=== PATIENT | female | born 1995 | race Caucasian/White ===

== ENCOUNTER 2019-11-21 08:44 | Day surgery (SDC) | payer OTHER ==
[2019-11-08 11:42] VITALS: BMI 31.1
--- NOTE | 2019-11-17 11:25 | HP ---
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 Patient's most recent US done 05/2019 was c/w multiple masses including an increase in the right fibroadenoma from 3.6 to 6.2 cm. The left 9 oclock mass also showed an increase from 1.9 to 2.1 cm. Patient is now presenting for bilateral breast wide excision. History Source: Patient Limitations to Obtaining History: No Limitations - Past Medical History ...LMP: 10/04/19 Additional Past Medical History: None - Past Surgical History Past Surgical History: Yes: Appendectomy (1998), Breast Biopsy (right 5-6 oclock core bx (09/2018-fibroadenoma)) - Smoking History Smoking history: Never smoked Home Medications - Allergies Allergies/Adverse Reactions: Allergies Allergy/AdvReac Type Severity Reaction Status Date / Time No Known Allergies Allergy Verified 11/08/19 11:31 - Home Medications Home Medications: Ambulatory Orders Multivitamin [One-Daily Multi-Vitamin] 1 each PO DAILY 11/08/19 Norethindrone AC-Eth Estradiol [Loestrin 21 1.5-30 Tablet] 1 each PO DAILY 11/08/19 Family Medical History Other Family History: pat cousin-hepatic/renal cancer Review of Systems - Review of Systems Constitutional: reports: No Symptoms Cardiovascular: reports: No Symptoms Respiratory: reports: No Symptoms Gastrointestinal: reports: Indigestion, Nausea Musculoskeletal: reports: Back Pain, Muscle Pain Physical Examination Constitutional: Yes: Well Nourished, Calm Breast(s): Yes: Other (Bilateral breasts are diffusely nodular and dense. A 6 cm rubbery mass was noted in the right LIQ and a left UIQ 1.5 cm mass was noted on palpation.) Problem List - Problems (1) Fibroadenoma of right breast Code(s): D24.1 - BENIGN NEOPLASM OF RIGHT BREAST (2) Left breast mass Code(s): N63.20 - UNSPECIFIED LUMP IN THE LEFT BREAST, UNSPECIFIED QUADRANT Assessment/Plan Bilateral breast wide excision
[2019-11-21] MEDS ORDERED: fentaNYL CITRATE 250 MCG/5 ML VIAL ONE (11:04)
[2019-11-21] MEDS ORDERED: MIDAZOLAM HCL 2 MG/2 ML SINGLE DOSE VIAL ONE ×2 (11:05→11:45)
[2019-11-21] MEDS ORDERED: ROCURONIUM BROMIDE 50 MG/5 ML VIAL ONE (11:05)
[2019-11-21] MEDS ORDERED: ONDANSETRON 4 MG/2 ML VIAL ONE ×2 (11:05→11:50)
[2019-11-21] MEDS ORDERED: LIDOCAINE HCL/PF 2% SDV 5ML VIAL ONE (11:05)
[2019-11-21] MEDS ORDERED: DEXAMETHASONE SOD PHOSPHATE 4 MG/1 ML VIAL ONE ×3 (11:05→15:49)
[2019-11-21] MEDS ORDERED: PROPOFOL 20 ML ONE ×5 (11:05→15:18)
[2019-11-21] MEDS ORDERED: NEOSTIGMINE METHYLSULFATE 0.5 MG/ML - 10 ML MDV ONE ×2 (11:10→16:06)
[2019-11-21] MEDS ORDERED: GLYCOPYRROLATE 0.2 MG/1 ML VIAL ONE ×2 (11:11→16:06)
[2019-11-21] MEDS ORDERED: LIDOCAINE HCL 1%, 10 MG/ML (20ML VIAL) ONE (11:13)
[2019-11-21] MEDS ORDERED: BUPIVACAINE HCL/PF 0.5% (5MG/ML) 10 ML VIAL ONE (11:13)
[2019-11-21] MEDS ORDERED: SUCCINYLCHOLINE CHLORIDE 200 MG/10 ML SYRINGE ONE (11:49)
[2019-11-21] MEDS ORDERED: ceFAZolin SODIUM 1 GM VIAL ONE (12:03)
[2019-11-21] MEDS ORDERED: KETOROLAC TROMETHAMINE 30 MG/1 ML VIAL IVPUSH PRN (13:18)
[2019-11-21] MEDS ORDERED: ONDANSETRON 4 MG/2 ML VIAL IVPUSH PRN (13:18)
[2019-11-21] MEDS ORDERED: DEXTROSE 5%-0.45% SALINE 1,000 ML IV SCH (13:30)
[2019-11-21] MEDS ORDERED: ROCURONIUM BROMIDE 50 MG/5 ML SYRINGE ONE (13:39)
--- NOTE | 2019-11-21 14:10 | OP ---
DATE OF OPERATION: 11/21/2019 PREOPERATIVE DIAGNOSIS: Bilateral benign-appearing nodules. POSTOPERATIVE DIAGNOSIS: Bilateral benign-appearing nodules. PROCEDURE: Bilateral breast biopsies. ANESTHESIA: General. ATTENDING SURGEON: Ashkan Watts MD DRIER TRANSFER CAR OPERATOR: COLETTE Siddiqui ESTIMATED BLOOD LOSS: Minimal. COMPLICATIONS: None. PROCEDURE: Patient was made aware of the risks and benefits of the procedure and consented. She was placed in a supine position. Preoperatively the plastic surgeon marked out his reduction incisions. After general anesthesia was induced, the patient was intubated. The operative site was prepped and draped in usual sterile fashion. The left breast was approached first. A curvilinear incision was made over the prior incision as demarcated by the plastic surgeon. This was taken down to the breast mass which was then sharply excised and submitted with a short suture superior, long suture lateral. Hemostasis was maintained by electrocautery and the procedure on the left breast was then turned over to Plastic Surgery. The right side was then approached. Incision was made over the breast mass. Using blunt and sharp dissection it was excised and submitted to Pathology. The wound was copiously irrigated with normal saline. Hemostasis maintained by electrocautery. This breast was also turned over to Plastic Surgery for reduction. Dr. Castillo will dictate his portion separately. ASHKAN WATTS M.D. [id number]
[2019-11-21] MEDS ORDERED: oxyCODONE HCL 5 MG TABLET PO PRN (14:22)
[2019-11-21] MEDS ORDERED: LACTATED RINGERS SOLUTION 1,000 ML IV SCH (14:30)
[2019-11-21] MEDS ORDERED: HYDROmorphone HCL/PF 1 MG/ML VIAL ONE (14:51)
[2019-11-21] MEDS ORDERED: DESFLURANE GAS 240 ML BOTTLE IH ONE (15:15)
--- NOTE | 2019-11-21 16:32 | OP ---
Operative Note - Note: Operative Date: 11/21/19 Pre-Operative Diagnosis: bilateral macromastia with giant fibroadenomas bilaterally Operation: bilateral breast reconstruction using local adjacent tissue Post-Operative Diagnosis: Same as Pre-op Surgeon: Oz Castillo Chairman Emeritus: Daiz Mills Anesthesia: General Operative Report Dictated: Yes
--- NOTE | 2019-11-21 17:07 | OP ---
DATE OF OPERATION: 11/21/2019 TITLE OF PROCEDURE: Right-sided reconstruction of breast lumpectomy status post tumor excision using local tissue rearrangement and left-sided reduction mammoplasty for symmetry. SURGEON: Oz Castillo MD. SKY DIVER: COLETTE Gurrola. The procedure is performed in combination with a tumor excision performed by Dr. Carlos Watts and his team. That portion of the procedure will be dictated by Dr. Watts and his team. DESCRIPTION OF PROCEDURE: Patient brought to the operating room, placed in a supine position. She had been marked preoperatively. Nipple transposition was planned. The new nipple location was to be 25 cm from the sternal notch bilaterally. She was marked with Dr. Watts with Tavera-pattern type scars for access to the tumor as well as to be used in the reconstruction. Patient was then brought to the operating room, placed in supine position. 2 g Ancef given preoperatively. Hendrix catheter is placed, which was removed at the end of the procedure. Sequential compression stockings were applied. ALLISON hose are applied. She is prepped and draped in standard surgical fashion. Timeout was called. Patient, procedure, incision sites are verified. Dr. Watts and his team perform the tumor excision first. At the completion of this, my reconstruction begins on the right side. The excision involves the tissue in a 6 o'clock position to the nipple areolar, and therefore using an inferior pedicle to relocate the nipple areola and reduce the breast is not possible, so the nipple is then based on a lateral pedicle. This is marked at 11 cm in width. A cookie cutter is used around the nipple areolar, 42 mm in width. The pedicle is deepithelialized with the exception of the nipple areola. The Tavera-type pattern incisions are then incised superiorly, medially, and inferiorly. The pedicle for the nipple areolar is developed, communicating and connecting to the tumor excision cavity but leaving ample tissue deep including perforating blood vessels from the pectoralis major muscle into the pedicle. Once the pedicle is freely mobilized, and thick skin flaps are elevated superiorly, medially, and inferiorly, the tissue in between the pedicle and the skin flaps is then removed to allow for closure. The weight of this removed tissue in addition to the weight of the tumor was 1223 g. The nipple is inset into the keyhole pattern. Skin is tailor tacked. All tissue appears pink and viable. Attention is directed toward the left side. The left side, a standard Tavera-the pattern breast reduction is performed. This is done as a means of providing symmetry with lateral pedicle. Pedicle is deepithelialized in a similar fashion but on this side it is not connected in and does not have to be configured around a defect in the 6 o'clock position. The pedicle is developed to the chest wall, preserving ample perforators from the pectoralis major muscle. Skin flaps are then elevated similarly superiorly, laterally and inferiorly, and the tissue between the pedicle and the skin flaps is then removed, and the total resection weight is 1088 g. The skin is tailor tacked. The patient is brought to a seated upright position where there is excellent symmetry of size, shape, good nipple position, and color. Two size 10 flat RADHA drains are brought out through the lateral extent of the incision, secured with a 2-0 silk drain suture. The hemostasis had been meticulously achieved. Wounds were copiously irrigated and closure is performed with a half-buried mattress 2-0 nylon inverted T-point suture followed by a series of interrupted buried deep dermal 3-0 Monocryl suture everywhere, followed by running subcuticular 3-0 Monocryl suture on the vertical and horizontal limbs, followed by a running subcuticular 4-0 Monocryl in the keyhole pattern. Dressings were with Steri-Strips, 4x4 gauze, ABD gauze, surgical bra. Drains are placed to bulb suction. Patient was awoken from anesthesia. Transferred to recovery without complication. OZ CASTILLO M.D. [id number]
[2019-11-21 17:37] VITALS: PULSE 78; TEMP 98
--- NOTE | 2019-11-21 18:03 | SURG ---
Surgery Design Inserter Note Design Inserter: Diaz Mills PA-C Date of Service: 11/21/19 Diagnosis: bilateral macromastia with giant fibroadenomas bilaterally Procedure: bilateral breast reconstruction using local adjacent tissue I was present for the entirety of the operative procedure. For further detail, please refer to operative report. Visit type - Case Type Case Type: Scheduled - New patient This patient is new to me today: Yes Date on this admission: 11/21/19
[2019-11-21 18:18] VITALS: BP 126/60
--- NOTE | 2019-11-24 11:39 | PATH ---
Surgical Pathology Report Patient Name: SIMA MACHADO [facility]. Rec. #: [id number] /Age/Gender: 1995 (Age: 24) / F Account: [id number] Location: REPLACED BY [facility] Taken: 11/21/2019 Received: 11/21/2019 Reported: 11/24/2019 Physicians: Carlos Watts M.D. Specimen(s) Received A: LEFT BREAST WIDE EXCISION B: RIGHT BREAST MASS C: RIGHT BREAST D: LEFT BREAST Clinical History None given Final Diagnosis A. BREAST, LEFT, WIDE EXCISION: FIBROADENOMA. B. BREAST MASS, RIGHT, EXCISION: FIBROADENOMA. C. BREAST, RIGHT, EXCISION: SMALL FIBROADENOMA. BENIGN BREAST PARENCHYMA WITH STROMAL FIBROSIS AND FIBROADENOMATOID CHANGES. Skin without significant pathologic findings. D. BREAST, LEFT, EXCISION: SMALL FIBROADENOMA. BENIGN BREAST PARENCHYMA WITH STROMAL FIBROSIS AND FIBROADENOMATOID CHANGES. Skin without significant pathologic findings. Electronically Signed Sonia Sorensen M.D. Gross Description A. Received in formalin, labeled "left breast wide excision," is a 2.4 x 2.1 x 2.0 cm. alfaro-yellow, irregular, rubbery fibrous mass. There is no needle localization wire present. There is a short suture marking the superior aspect and a long suture marking the lateral aspect, per the surgeon. There is no skin or nipple present. The specimen is inked as follows: superior and lateral blue; inferior green; medial yellow; anterior red; deep black. The specimen is serially sectioned from medial to lateral. Sectioning reveals alfaro, rubbery, whorled parenchyma. No areas of hemorrhage or necrosis are identified. The specimen is entirely and sequentially submitted in 6 cassettes with the medial margin in cassette 1 and the lateral margin in cassette 6. Time to formalin fixation: 2 minutes Total formalin fixation time: Approximately 29 hours. B. Received in formalin labeled "right breast mass," is a 7.0 x 6.0 x 4.4 cm alfaro, encapsulated, rubbery mass. The outer surface is alfaro and smooth with minimal attached fat. There is no needle localization wire present. The specimen is unoriented. There is no skin or nipple present. The specimen is inked blue and serially sectioned. Sectioning reveals diffuse dye and, for the rubbery fibrous tissue. Cloth Covered Helmet Puller sections are sequentially submitted in 10 cassettes. Time to formalin fixation: 2 minutes Total formalin fixation time: Approximately 29 hours. C. Received in formalin labeled "right breast," is a 1218 g, 34.5 x 17.5 x 4.5 cm irregular, unoriented portion of fibroadipose tissue which is surfaced by alfaro, unremarkable skin. Sectioning reveals abundant, multifocal, dense, white, focally firm fibrous tissue. No definitive mass is identified. Cloth Covered Helmet Puller sections are submitted in 5 cassettes. D. Received in formalin labeled "left breast," is a 1097 g, 24.0 x 17.5 x 6.0 cm aggregate of multiple irregular, unoriented portions of fibroadipose tissue and alfaro, unremarkable skin. Sectioning reveals abundant, multifocal, dense, white, focally firm fibrous tissue. No definitive mass is identified. Cloth Covered Helmet Puller sections are submitted in 5 cassettes. 11/22/2019 [facility]11/22/2019
== END 2019-11-21 18:40 | disposition home or self-care (01) ==
LOC: FASU 08:44
PROVIDERS: ATTEND Surgery Surgical Oncology
PROC: 0HBU0ZZ Excision of Left Breast, Open Approach (ICD-10-PCS; 2019-11-21)
PROC: 0HBV0ZX Excision of Bilateral Breast, Open Approach, Diagnostic (ICD-10-PCS; principal; 2019-11-21 12:26)
PROC: 0HRT07Z Replacement of Right Breast with Autologous Tissue Substitute, Open Approach (ICD-10-PCS; 2019-11-21 12:26)
DX: D24.1 Benign neoplasm of right breast (principal); D24.2 Benign neoplasm of left breast; N60.31 Fibrosclerosis of right breast; N60.32 Fibrosclerosis of left breast
CPT/HCPCS: 84703; 88307-TC; 94760

== ENCOUNTER 2023-08-18 16:31 | Emergency (ER) | payer OTHER ==
[2023-08-18 16:35] VITALS: RESP 18; TEMP 97.7; BMI 33.0
[2023-08-18] MEDS ORDERED: ACETAMINOPHEN INJECTION 100 ML IVPB ONE (18:33)
[2023-08-18] MEDS ORDERED: FAMOTIDINE 20 MG/50 ML IVPB 20 MG/50 ML MG IVPB ONE (18:33)
[2023-08-18] MEDS ORDERED: ONDANSETRON 4 MG/2 ML VIAL ONE (18:33)
[2023-08-18] MEDS: SODIUM CHLORIDE 0.9% 500 ML INFUS.BAG IV ONE (19:02)
[2023-08-18] MEDS: ONDANSETRON 4 MG/2 ML VIAL IVPUSH ONE (19:02)
[2023-08-18] MEDS: FAMOTIDINE 20 MG/50 ML IVPB 20 MG/50 ML MG IVPB ONE (19:02)
[2023-08-18] MEDS: ACETAMINOPHEN 1000 MG/100 ML BAG IVPB ONE (19:02)
[2023-08-18 19:05] LABS: BASO % 0.2 % (0-2.0); EOS % 1.8 % (0-4.5); HEMATOCRIT 44.7 % (32.4-45.2); HEMOGLOBIN 14.9 GM/dL (10.7-15.3); MCH 30.1 pg (25.7-33.7); MCHC 33.4 g/dl (32.0-36.0); MEAN CELL VOLUME 90.1 fl (80-96); MEAN PLT VOLUME 8.9 fl (7.5-11.1); MONO % 2.7 % (3.8-10.2); NEUT % 90.3 % (42.8-82.8); PLATELET COUNT 351 10^3/uL (134-434); RBC 4.96 M/mm3 (3.60-5.2); RDW 13.2 % (11.6-15.6); WHITE BLOOD COUNT 12.3 K/mm3 (4.0-10.0)
[2023-08-18 19:25] LABS: POTASSIUM 4.6 mmol/L (3.5-5.1)
[2023-08-18 19:28] LABS: ALBUMIN 4.1 g/dl (3.4-5.0); BLOOD UREA NITROGEN 14.3 mg/dL (7-18); CALCIUM 9.2 mg/dL (8.5-10.1)
[2023-08-18 19:31] LABS: CREATININE 0.9 mg/dL (0.55-1.3)
[2023-08-18 19:33] LABS: BILIRUBIN,TOTAL 0.5 mg/dL (0.2-1); TOT PROT 7.8 g/dl (6.4-8.2)
[2023-08-18 20:18] LABS: PH,URINE 5.5 (5.0-8.0); URINE APPEARANCE CLEAR; URINE BILIRUBIN NEGATIVE (NEGATIVE); URINE COLOR YELLOW; URINE GLUCOSE (UA) NEGATIVE (NEGATIVE); URINE KETONE NEGATIVE (NEGATIVE); URINE LEUK ESTERASE NEGATIVE (NEGATIVE); URINE NITRITE NEGATIVE (NEGATIVE); URINE PROTEIN TRACE (NEGATIVE); URINE UROBILINOGEN 0.2 mg/dL (0.2-1.0)
[2023-08-18 21:19] VITALS: BP 119/67; PULSE 82
== END 2023-08-18 21:36 | disposition home or self-care (01) ==
LOC: JER 16:31
PROC: 3E033GC Introduction of Other Therapeutic Substance into Peripheral Vein, Percutaneous Approach (ICD-10-PCS; principal; 2023-08-18)
PROC: 3E030GC Introduction of Other Therapeutic Substance into Peripheral Vein, Open Approach (ICD-10-PCS; 2023-08-18)
PROC: 3E030GC Introduction of Other Therapeutic Substance into Peripheral Vein, Open Approach (ICD-10-PCS; 2023-08-18)
DX: K52.9 Noninfective gastroenteritis and colitis, unspecified (principal); R11.2 Nausea with vomiting, unspecified; R30.0 Dysuria; R10.10 Upper abdominal pain, unspecified
CPT/HCPCS: 36415; 76705-TC; 80053; 81003; 83690; 84703; 85025; 87086; 99284-25; J0131